=== PATIENT | female | born 1975 | race Hispanic/Latino ===

== ENCOUNTER 2017-09-21 14:16 | Emergency (ER) | payer OTHER ==
[2017-09-21] MEDS ORDERED: TRAMADOL HCL50 MG PO (15:27)
[2017-09-21] MEDS ORDERED: VOLTAREN - GENE75 MG PO (15:27)
[2017-09-21 15:45] VITALS: BP 139/74
== END 2017-09-21 15:45 | disposition home or self-care (01) | DRG 605 ==
LOC: ED 14:16
DX: S30.0XXA Contusion of lower back and pelvis, initial encounter (principal); W01.0XXA Fall on same level from slipping, tripping and stumbling without subsequent striking against object, initial encounter; Y92.89 Other specified places as the place of occurrence of the external cause; Y99.0 Civilian activity done for income or pay